=== PATIENT | female | born 1950 | race Caucasian/White ===

== ENCOUNTER 2022-10-01 14:38 | Outpatient (CLI) | payer MEDICARE ==
[~2022-10-01] VITALS: Ht 160 cm; Wt 58.1 kg
[2022-10-01] MEDS ORDERED: METH-797 (15:40)
[2022-10-01] MEDS ORDERED: BUPR-72 PO (15:40)
[2022-10-01] MEDS ORDERED: LACT1CAP65 PO (15:40)
[2022-10-01] MEDS ORDERED: COLLOIDAL SILVER (15:40)
[2022-10-01] MEDS ORDERED: MULT-1085 PO (15:40)
[2022-10-01] MEDS ORDERED: MECO10005 (15:40)
[2022-10-01] MEDS ORDERED: LEVO100T78 PO (15:40)
[2022-10-01] MEDS ORDERED: FERR-28 PO (15:40)
[2022-10-01] MEDS ORDERED: MELO-102 PO (15:40)
[2022-10-01 16:22] LABS: BASOPHILS % (AUTO) 0.4 % (0-1); EOSINOPHILS # (AUTO) 0.1 X10'3 (0-0.9); EOSINOPHILS % (AUTO) 0.9 % (0-6); LYMPHOCYTES % (AUTO) 17.7 % (21-51); MEAN CORPUSCULAR HEMOGLOBIN 30.1 PG (27.0-31.0); MEAN CORPUSCULAR HGB CONC 32.3 g/dL (33.0-36.5); MEAN CORPUSCULAR VOLUME 93.2 FL (78-98); MONOCYTES # (AUTO) 0.5 X10'3 (0-0.9); MONOCYTES % (AUTO) 8.3 % (2-12); NEUTROPHILS % (AUTO) 72.7 % (42-75); PRE OP HEMATOCRIT 41.2 % (35.0-45.0); PRE OP HEMOGLOBIN 13.3 g/dL (12.0-16.0); PRE OP PLATELET COUNT 296 X10'3 (140-440); RED BLOOD COUNT 4.42 X10'6 (4.20-5.60); RED CELL DISTRIBUTION WIDTH 13.3 % (11.5-14.5)
[2022-10-01 16:41] LABS: ALBUMIN 3.4 G/DL (3.4-5.0); ALBUMIN/GLOBULIN RATIO 0.9 (1.1-1.5); ALKALINE PHOSPHATASE 74 IU/L (46-116); BLOOD UREA NITROGEN 15 MG/DL (7-18); BUN/CREATININE RATIO 23.8 (6.6-38.0); CALCIUM 8.8 MG/DL (8.5-10.1); CHLORIDE 106 MMOL/L (99-107); CREATININE 0.63 MG/DL (0.40-0.90); PRE OP ALT 25 U/L (30-65); PRE OP ANION GAP 8 (8-16); PRE OP AST 19 U/L (10-37); PRE OP BILIRUB, TOTAL 0.3 MG/DL (0.0-1.0); PRE OP GLUCOSE 93 MG/DL (70-104); PRE OP POTASSIUM 4.1 MMOL/L (3.4-5.1); PRE OP SODIUM 141 MMOL/L (135-145); TOTAL CARBON DIOXIDE 26.7 MMOL/L (24-32); TOTAL PROTEIN 7.1 G/DL (6.4-8.2); eGFR > 90 ML/MIN
[2022-10-03] MEDS ORDERED: ringers solution, lacted 1,000 ML IV SCH (05:00)
[2022-10-03] MEDS ORDERED: famotidine 20mg tablet PO ONE (05:30)
[2022-10-03] MEDS ORDERED: ceFAZolin inj. 2,000 MG in dextrose 5%-water 100 ML IV ONE (05:30)
== END 2022-10-01 23:59 | disposition home or self-care (01) ==
LOC: LAB 14:38 → EDSTATUS 10-10 09:15
PROVIDERS: ATTEND Surgery
DX: Z01.818 Encounter for other preprocedural examination (principal); K43.2 Incisional hernia without obstruction or gangrene
CPT/HCPCS: 36415; 80053; 85025; 93005; J0690; J7040; J7060; J7120